=== PATIENT | male | born 1975 | race Caucasian/White ===

== ENCOUNTER 2019-07-12 10:11 | Emergency (ER) | payer BC, SELFPAY ==
--- NOTE | 2019-07-12 10:52 | ED.FEVER ---
HPI - Fever General Chief Complaint: Nausea/Vomiting/Diarrhea Stated Complaint: diarrhea, dont feel good Source: patient Mode of arrival: ambulatory Limitations: no limitations History of Present Illness HPI Narrative: Is a 44-year-old gentleman that presents with a fever while at his primary care physician's office Um temperature that was elicited of 100.2 some presents to the emergency department with being afebrile with no other complaints no diarrhea no nausea vomiting no shortness of breath no cough no chest pain. MD elicited complaint: fever Onset (ago): day(s) Measured temperature: 100.2 C (at his PCP office, currently afebrile) Exacerbating factors: nothing Relieving factors: nothing Associated symptoms: denies other symptoms Treatments prior to arrival fever: none Review of Systems Review of Systems: All systems reviewed & are unremarkable except as noted in HPI and below PMFSH Past Medical History Medical History Patient denies medical problems Exam Const: General: no acute distress and alert Orientation/consciousness: patient oriented x3 Limitations: altered mental status HENMT: Head: normal to inspection Eyes: Conjunctivae: conjunctivae normal Pupils: Equal, round and reactive pupils present Neck: Neck: normal visual inspection Chest: Chest palpation & inspection: normal inspection of the chest Cardio: Rate: regular rate Rhythm: regular rhythm Peripheral pulses: Peripheral pulses 2+ throughout GI: GI Palp: Yes Soft to palpation : Male General Exam: Yes normal external exam Testes: Testes normal Urinary Catheter: Urinary Catheter: patent and draining Skin: General skin exam: normal color Rashes: no rashes Neuro: General: patient oriented x3, moves all extremities, no meningeal signs and no focal motor deficits Extrem: General: normal to inspection Psych: Mental Status: mental status grossly normal Affect: normal affect Critical Care Time Critical Care Time Critical Care Time: No Discharge Plan Discharge Clinical Impression: Gastroenteritis Patient Disposition: Home, Self-Care Condition: Stable Instructions: Antibiotic Form, Gastroenteritis (ED) Additional Instructions: Follow-up with primary care physician if symptoms persist or worsen. Follow-up/Referrals: Aida Garcia MD [Primary Care Provider] - Stand Alone Forms: Work/School Release IP Time of Disposition: 10:57
[2019-07-12 11:00] VITALS: BP 155/103; PULSE 96; RESP 16; TEMP 36.8; O2SAT 96
--- NOTE | 2019-07-12 11:08 | PC.NURSE ---
1045 REPORT TO JAMIE GOMEZ
[2019-07-12 11:13] VITALS: BP 154/103; RESP 16
== END 2019-07-12 11:14 | disposition home or self-care (01) ==
PROVIDERS: Emergency Provider Emergency Medicine; PCP Internal Medicine
DX: K52.9 Noninfective gastroenteritis and colitis, unspecified (principal)
CPT/HCPCS: 99281; 99282

== ENCOUNTER 2020-06-20 14:03 | Outpatient (CLI) | payer BC, SELFPAY ==
--- NOTE | 2020-06-20 14:05 | ECHO_ITS ---
Patient Info Name: Orlando Lawrence Age: 45 years : 1975 Gender: Male Ht: 78 in Wt: 236 lbs BSA: 2.44 m2 HR: 77 bpm BP: 149 / 92 mmHg Heart Rhythm: Sinus Rhythm Technical Quality: Excellent Exam Date: 06/20/2020 1:09 PM Exam Location: [facility] Patient Status: Outpatient Admit Date: 06/20/2020 Staff Ordering Physician: Thad Hines DO Urban Sociologist: Radha Zuniga RDCS Attending Provider: Thad Hines DO Referring Physician: Donny DAMON; Exam Type: CA echo doppler color flow Study Info Indications I10 - Essential (primary) hypertension Complete two-dimensional, color flow and Doppler transthoracic echocardiogram is performed. Strain analysis performed. History/Risk Factors Hypertension: No Dyslipidemia: No Obesity: No Date of Last Tobacco Use: 06/20/2020 Tobacco Use: Current - Every Day If Any Current, Tobacco Type: Smokeless Family History: Coronary Artery Disease, Diabetes Mellitus Frailty Scale (CSHA): 2: Well Summary 1. Complete two-dimensional, color flow and Doppler transthoracic echocardiogram is performed. 2. Left ventricular chamber dimension is normal. 3. Left ventricular systolic function is normal, estimated at 60-65%. 4. There is moderately increased left ventricular wall thickness. 5. The left ventricular diastolic function is grade I diastolic dysfunction. 6. E/e' 10 is mildly elevated. 7. Global longitudinal strain is normal at -24.6%. 8. Left atrial chamber dimension is mildly enlarged. 9. There is trace aortic valve regurgitation. 10. There is mild mitral valve regurgitation. 11. There is trace pulmonic regurgitation. Recommendations * Smoking cessation counseling is recommended for this patient. Left Ventricle E/e' 10 is mildly elevated. Global longitudinal strain is normal at -24.6%. Left ventricular chamber dimension is normal. Left ventricular systolic function is normal, estimated at 60-65%. There is moderately increased left ventricular wall thickness. The left ventricular diastolic function is grade I diastolic dysfunction. Right Ventricle Right ventricular chamber dimension is normal. Right ventricular systolic function is normal. Left Atria Left atrial chamber dimension is mildly enlarged. Right Atria Right atrial chamber dimension is normal. Aortic Valve The aortic valve is trileaflet. There is no aortic valve stenosis. There is trace aortic valve regurgitation. Pulmonic Valve There is trace pulmonic regurgitation. Mitral Valve There is no mitral valve stenosis. There is mild mitral valve regurgitation. Tricuspid Valve There is no tricuspid valve regurgitation. Pericardium/Pleural There is no pericardial effusion. Inferior Vena Cava Normal inferior vena cava with >50% collapse upon inspiration consistent with normal right atrial pressure, 5 mmHg. Aorta The aortic root size at the sinus of Valsalva is normal. Left Ventricular Outflow Tract Name Value Normal LVOT 2D LVOT Diameter 1.9 cm LVOT Doppler LVOT Peak Velocity 117 cm/s
[2020-06-20 14:59] LABS: Hematocrit 40.3 % (40.0-54.0); Hemoglobin 13.7 g/dL (14.0-18.0); Mean Corpuscular Hemoglobin 32.7 pg (27.0-31.0); Mean Corpuscular Volume 96.2 fL (78.0-102.0); Mean Platelet Volume 8.4 fl (8.7-11.0); Platelet Count Result 268 K/mm3 (150-420); Red Blood Count 4.19 M/mm3 (4.70-6.10); Red Cell Distribution Width 12.6 % (11.6-14.4); White Blood Count 8.3 K/mm3 (4.8-10.8)
[2020-06-20 15:46] LABS: BNP 13 pg/mL (0-100)
[2020-06-20 15:51] LABS: Alanine Aminotransferase 40 U/L (16-63); Alkaline Phosphatase 98 U/L (46-116); Anion Gap 10 mmol/L (8-16); Aspartate Amino Transferase 28 U/L (15-37); Bilirubin,Total 0.5 mg/dL (0.00-1.00); Blood Urea Nitrogen 13 mg/dL (7-18); Calcium 8.5 mg/dL (8.5-10.1); Carbon Dioxide 28 mmol/L (21-32); Chloride 98 mmol/L (98-108); Estimated Glomerular Filt Rate > 60; Glucose 86 mg/dL (70-99); Osmolality Calculated 281 mOsm/kg (285-295); Potassium 4.1 mmol/L (3.5-5.1); Sodium 136 mmol/L (136-145); Total Protein 7.6 g/dL (6.4-8.2)
== END 2020-06-20 14:04 | disposition home or self-care (01) ==
LOC: CHSIMG 14:05
PROVIDERS: PCP Family Medicine; Visit Provider Family Medicine
DX: I11.0 Hypertensive heart disease with heart failure (principal); I50.9 Heart failure, unspecified
CPT/HCPCS: 36415; 80053; 83880; 85027; 93306

== ENCOUNTER 2021-10-01 13:25 | Outpatient (CLI) | payer OTHER, SELFPAY ==
--- NOTE | ~2021-10-01 | XR_ITS ---
XR knee RT 3V 10/01/2021 13:55 Indication: Right knee pain Procedure: 3 views right knee Comparison: 08/13/2010 Findings: There is mild-moderate tricompartment osteoarthritis. No fracture or traumatic malalignment . No significant joint effusion. No foreign bodies. There is a small loose body lateral to the joint space, likely degenerative. Impression: 1: Mild-moderate osteoarthritis of the right knee. Reviewed, dictated and finalized at location A. Impression: 1: Mild-moderate osteoarthritis of the right knee.
--- NOTE | ~2021-10-01 | XR_ITS ---
XR knee LT 3V DATE: 10/01/2021 13:54 INDICATION: Right knee pain TECHNIQUE: [place], AP and lateral views COMPARISON: None FINDINGS: No fracture or dislocation or joint effusion. Joint spaces are preserved. No radiopaque int ra-articular loose body or chondrocalcinosis. No periosteal reaction or bone destruction. IMPRESSION: Negative Reviewed, dictated and finalized at location A. IMPRESSION: Negative
== END 2021-10-01 13:26 | disposition home or self-care (01) ==
LOC: CHSIMG 13:29
PROVIDERS: PCP Family Medicine; Visit Provider Family Medicine
DX: M25.561 Pain in right knee (principal); M25.562 Pain in left knee
CPT/HCPCS: 73562

== ENCOUNTER 2021-10-16 08:08 | Outpatient (CLI) | payer OTHER, SELFPAY ==
--- NOTE | ~2021-10-16 | MR_ITS ---
EXAMINATION: MR brain/brain stem wo con DATE: 10/16/2021 09:37 INDICATION: Frequent falls. Disequilibrium. TECHNIQUE: Magnetic resonance imaging (MRI) of the brain and brainstem was performed without intraven ous contrast. Sequences included sagittal and axial T1-weighted SE, axial diffusion-weighted FS SE, a xial T2*-weighted GRE, axial T2-weighted FLAIR Propeller, and axial T2-weighted Propeller. Apparent d iffusion coefficient (ADC) maps were created. COMPARISON: CT dated 07/30/2009. FINDINGS: There are right parietal craniotomy changes. There are scattered mild periventricular and s ubcortical white matter changes, most likely related to small vessel ischemic disease (microangiopath y). There is mild right maxillary sinus disease. Orbits are symmetric without disconjugate gaze. No a cute intracranial infarction or hemorrhage. There is artifact from right parietal craniotomy defect. Structures of the posterior fossa including 7/8th cranial nerve complexes are normal. IMPRESSION: 1. No acute intracranial abnormality. 2: Chronic age-related findings. 3: Mild right maxillary sinus disease. 4: Prior right parietal craniotomy defect. Reviewed, dictated and finalized at location A.
== END 2021-10-16 08:09 | disposition home or self-care (01) ==
LOC: CHSIMG 08:11
PROVIDERS: PCP Family Medicine; Visit Provider Family Medicine
DX: R42 Dizziness and giddiness (principal)
CPT/HCPCS: 70551

== ENCOUNTER 2021-10-20 10:25 | Outpatient (CLI) | payer OTHER, SELFPAY ==
--- NOTE | ~2021-10-20 | MR_ITS ---
EXAMINATION: MR cervical spine wo con DATE: 10/20/2021 11:48 INDICATION: Chronic neck pain. TECHNIQUE: Magnetic resonance imaging (MRI) of the cervical spine was performed without intravenous c ontrast. Sequences included sagittal T2-weighted FSE, sagittal T2-weighted FS FSE, sagittal T1-weight ed FSE, axial MERGE, and axial T2-weighted FSE. COMPARISON: Cervical spine MRI 08/04/2009 FINDINGS: There is 12 degrees dextroscoliosis of the cervicothoracic spine. There is kyphosis of uppe r cervical spine. There are changes of anterior fusion procedure from C4 to C7 with anterior plate an d screws. There is healed interbody bone graft at C4-C5 and C5-C6. There is not definite interbody br idging bone at C6-C7. There is moderately decreased disc height at C2-C3 and C3-C4 and mildly decreas ed disc height at C7-T1. There is increased T2-weighted signal intensity in the spinal cord at C4-C5 centered at the melendrez matter with volume loss, consistent with myelomalacia. The following disc levels are specifically discussed: C2-C3: There is a central protrusion. There is moderate bilateral uncovertebral joint osteoarthritis. There is mild bilateral facet joint osteoarthritis. There is mild bilateral neural foraminal stenosi s. There is mild central canal stenosis. C3-C4: The disc is bulging. There is severe bilateral uncovertebral joint osteoarthritis. There is mi ld bilateral facet joint osteoarthritis. There is mild right and moderate left neural foraminal steno sis. There is mild central canal stenosis. C4-C5: There is no uncovertebral joint hypertrophy. There is no facet joint osteoarthritis. There is no neural foraminal stenosis. There is no central canal stenosis. C5-C6: There is mild bilateral uncovertebral joint hypertrophy. There is no facet joint osteoarthriti s. There is no neural foraminal stenosis. There is no central canal stenosis. C6-C7: There is mild bilateral uncovertebral joint hypertrophy. There is mild left facet joint osteoa rthritis. There is mild bilateral neural foraminal stenosis. There is no central canal stenosis. C7-T1: There is a central protrusion. There is no uncovertebral joint osteoarthritis. There is severe bilateral facet joint osteoarthritis. There is mild bilateral neural foraminal stenosis. There is no central canal stenosis. IMPRESSION: 1. Anterior fusion procedure from C4 to C7. 2. Moderate cervical spondylosis. 3. Chronic myelomalacia at C4-C5. Reviewed, dictated and finalized at location A.
== END 2021-10-20 10:26 | disposition home or self-care (01) ==
LOC: CHSIMG 10:26
PROVIDERS: PCP Family Medicine; Visit Provider Family Medicine
DX: M54.2 Cervicalgia (principal); G89.29 Other chronic pain
CPT/HCPCS: 72141

== ENCOUNTER 2021-10-23 08:26 | Outpatient (CLI) | payer OTHER, SELFPAY ==
--- NOTE | ~2021-10-23 | MR_ITS ---
EXAMINATION: MR lumbar spine wo con DATE: 10/23/2021 09:42 INDICATION: Chronic back pain. TECHNIQUE: Magnetic resonance imaging (MRI) of the lumbar spine was performed without intravenous con trast. Sequences included sagittal T2-weighted FSE, sagittal T2-weighted FS FSE, sagittal T1-weighted FSE, and axial T2-weighted FSE. COMPARISON: Lumbar spine radiographs 02/22/2014 FINDINGS: There is 4 degrees levocurvature of lumbar spine. There are Schmorl's nodes at all levels. There is mildly decreased disc height from T12-L1 through L3-L4 and severely decreased disc height at L5-S1 with endplate remodeling. The distal spinal cord signal intensity is normal. The conus medulla ris is at T12-L1. There is a 12 mm cyst in right kidney. The following disc levels are specifically d iscussed: T12-L1: The disc is bulging. There is no facet joint osteoarthritis. There is no neural foraminal boni nosis. There is mild central canal stenosis. L1-L2: There is a central extrusion. There is mild bilateral facet joint osteoarthritis. There is mil d bilateral neural foraminal stenosis. There is mild central canal stenosis. L2-L3: The disc is bulging. There is no facet joint osteoarthritis. There is mild bilateral neural fo raminal stenosis. There is mild central canal stenosis. L3-L4: The disc is bulging. There is mild bilateral facet joint osteoarthritis. There is mild bilater al neural foraminal stenosis. There is mild central canal stenosis. L4-L5: The disc is bulging. There is mild right and moderate left facet joint osteoarthritis. There i s mild bilateral neural foraminal stenosis. There is no central canal stenosis. L5-S1: The disc is bulging and has an annular fissure. There is moderate right and mild left facet justice int osteoarthritis. There is moderate bilateral neural foraminal stenosis. There is mild central harriet l stenosis. IMPRESSION: 1. Severe lower lumbar spondylosis. Reviewed, dictated and finalized at location A.
== END 2021-10-23 08:27 | disposition home or self-care (01) ==
LOC: CHSIMG 08:27
PROVIDERS: PCP Family Medicine; Visit Provider Family Medicine
DX: M54.9 Dorsalgia, unspecified (principal); G89.29 Other chronic pain
CPT/HCPCS: 72148

== ENCOUNTER 2022-01-01 07:58 | Outpatient (RCR) | payer OTHER, SELFPAY ==
--- NOTE | 2022-01-01 08:02 | PTOPEVAL1 ---
Assessment and note entered by Sophia Burns DPT Evaluation Information Assessment Status Evaluation Diagnosis Back pain Onset 12/25/2021 Subjective Information Pt has been dealing with chronic back pain for years now that has been gradually worsening. Pain has insidious onset but feels it might be from his repetitive job. He reports pain is worst after a hard day of work but pain is constant. He reports that he has noticed he moves slower due to pain. Pt reports that sleep and most activities ( standing, walking, steps) are very painful and he notices that he bends over more for comfort. He also notes that his balance feels off more recently. Pt reports that pain is in his lower back. He has been seeing a neurosurgeon but the current plan is to stay away from surgery for now. Pt reports numbness and tingling in his bilateral feet but not his legs. He has had a surgery in the past on his neck. Pt reports he wants to be able to have less pain for hunting and camping as well as work. Reported Pain Level Pain Score 7: Self Report Assessment PT Clinical Summary Pt presents to physical therapy with low back pain and demonstrates decreased mobility, decreased strength, altered posture and gait, and decreased core stability. These deficits make it more challening for him to walk, stand, and lift weights as needed for work and hunting/camping. He was provided with an HEP focused on improving mobility and strength in positions of comfort. He will benefit from skilled PT to improve the aforementioned impairments, facilitate symptom relief, and return to functional and recreational activities. Plan of Care Interventions Electrical Stimulation,Hot Pack/Cold Pack,Manual Therapy,Neuro Re-education,Patient/Caregiver Educati,Therapeutic Activities,Therapeutic Exercise PT Services Indicated Yes Treatment Frequency and 2x week for 10 visits Duration These treatments will address the objective and functional deficits as defined above. The patient will be advanced safely and appropriately in order for the patient to progress towards his/her prior level of function. Additional exercises will be introduced and as well as a comprehensive home exercise program upon discharge, if needed, ?to ensure carryover of functional gains achieved in the clinic. This treatment plan has been reviewed and agreement upon by the patient.
--- NOTE | 2022-02-11 07:43 | PTOPEVAL1 ---
Assessment and note entered by Vasquez Rausch Evaluation Information Assessment Status Progress Diagnosis back pain Onset 12/25/21 Subjective Information Pt. reports that he has been attending doctors appointments recently and been unable to attend therapy. He states that his back pain has not changed, but he has not been doing his HEP. He states that he still has constant pain across the low back. He reports that he does attempt to complete yard work but still causes pain. He recently talked with his doctor who thought surgery may be in the future to address his low back pain. Reported Pain Level Pain Score 6: Self Report Assessment PT Clinical Summary Pt. has been unable to attend therapy as of recently due to other appointments. He has demonstrated little progress in regards to pain reports and objective presentation. He continues to present with generalized l.e. weakness, impaired postural awareness, impaired flexibility and overall functional decline. Continued treatment is indicated in order to continue to improve these areas and to establish independence with a HEP. Plan of Care Interventions Electrical Stimulation,Hot Pack/Cold Pack,Manual Therapy,Neuro Re-education,Therapeutic Activities, Therapeutic Exercise,Self-Care/Home Management PT Services Indicated Yes Treatment Frequency and 2x/week x 4 visits Duration These treatments will address the objective and functional deficits as defined above. The patient will be advanced safely and appropriately in order for the patient to progress towards his/her prior level of function. Additional exercises will be introduced and as well as a comprehensive home exercise program upon discharge, if needed, ?to ensure carryover of functional gains achieved in the clinic. This treatment plan has been reviewed and agreement upon by the patient.
--- NOTE | 2022-02-26 08:08 | PTOPPROG ---
Assessment and note entered by Sophia Burns DPT Evaluation Information Assessment Status Progress Diagnosis back pain Onset 12/25/21 Subjective Information Pt reports that his pain is slowly improving but he notes the most pain when twisting and bending. Pt reports some feelings of weakness in the legs. Pt sees the neurosurgeon again on 03/01. Assessment PT Clinical Summary Pt presents to PT with significant improvements in pain, quality of life, strength, and range of motion since his last evaluation. He is still limited in range of motion and strength and notes pain with extension or rotation-based interventions. He will benefit from additional skilled PT to further facilitate symptom relief, improve the aforementioned impairments, and return to functional and recreational activities. Plan of Care PT Services Indicated Yes Treatment Frequency and 1x week for 4 more visits Duration These treatments will address the objective and functional deficits as defined above. The patient will be advanced safely and appropriately in order for the patient to progress towards his/her prior level of function. Additional exercises will be introduced and as well as a comprehensive home exercise program upon discharge, if needed, ?to ensure carryover of functional gains achieved in the clinic. This treatment plan has been reviewed and agreement upon by the patient.
--- NOTE | 2022-06-12 17:21 | PCPTNOTE ---
patient has not been to therapy since 02/25/22. he will be dc'd from skilled PT services and all progress towards goals will be taken from his most recent evaluation/note. ADAM
== END 2022-02-26 23:59 | disposition home or self-care (01) ==
LOC: CHSPT 07:58
PROVIDERS: PCP Family Medicine
DX: M54.9 Dorsalgia, unspecified (principal)
CPT/HCPCS: 97014; 97110; 97140; 97161; 97530; G0283

== ENCOUNTER 2022-01-11 14:44 | Outpatient (CLI) | payer OTHER, SELFPAY ==
--- NOTE | ~2022-01-11 | XR_ITS ---
EXAMINATION: XR lumbar spine min 4V DATE: 01/11/2022 15:13 INDICATION: Lumbar radicular pain. TECHNIQUE: 5 views of lumbar spine including flexion and extension views were obtained. COMPARISON: Lumbar spine radiograph 02/22/2014, CT 01/11/2022 FINDINGS: There is mild kyphosis of lumbar spine. There are Schmorl's nodes at many levels. There is mildly decreased disc height at T12-L1, L2-L3, and L3-L4 and severely decreased disc height at L5-S1. There is multilevel mild facet joint osteoarthritis. The spine is hypomobile with flexion and extens ion. IMPRESSION: 1. Severe lower lumbar spondylosis. Reviewed, dictated and finalized at location A.
--- NOTE | ~2022-01-11 | CT_ITS ---
EXAMINATION: CT lumbar spine wo con DATE: 01/11/2022 15:14 INDICATION: Chronic low back pain. TECHNIQUE: Computed tomography (CT) of the lumbar spine was performed without intravenous contrast. A utomated exposure control and iterative reconstruction technique were employed. The dose-length produ ct was 1098.32 mGy-cm. COMPARISON: Lumbar spine MRI 10/23/2021 FINDINGS: There is diffuse hepatic steatosis. There is diffuse bladder wall thickening. There is mild kyphosis of lumbar spine. There are Schmorl's nodes at all levels. There is mildly decreased disc he ight from T12-L1 through L3-L4 and severely decreased disc height at L5-S1. The following disc levels are specifically discussed: L1-L2: The disc is bulging. There is mild bilateral facet joint osteoarthritis. There is mild bilater al neural foraminal stenosis. There is mild central canal stenosis. L2-L3: The disc is bulging. There is mild bilateral facet joint osteoarthritis. There is mild bilater al neural foraminal stenosis. There is mild central canal stenosis. L3-L4: The disc is bulging. There is mild bilateral facet joint osteoarthritis. There is mild bilater al neural foraminal stenosis. There is mild central canal stenosis. L4-L5: The disc is bulging. There is mild right and moderate left facet joint osteoarthritis. There i s mild bilateral neural foraminal stenosis. There is mild central canal stenosis. L5-S1: The disc is bulging. There is mild bilateral facet joint osteoarthritis. There is severe right and moderate left neural foraminal stenosis. There is mild central canal stenosis. IMPRESSION: 1. Severe lower lumbar spondylosis. 2. Diffuse bladder wall thickening, which may be seen with chronic outlet obstruction, cystitis, or n eurogenic bladder. Reviewed, dictated and finalized at location A. IMPRESSION: 1. Severe lower lumbar spondylosis. 2. Diffuse bladder wall thickening, which may be seen with chronic outlet obstr uction, cystitis, or neurogenic bladder.
== END 2022-01-11 14:45 | disposition home or self-care (01) ==
LOC: CHSIMG 14:45
PROVIDERS: PCP Family Medicine
DX: M54.16 Radiculopathy, lumbar region (principal); M54.9 Dorsalgia, unspecified
CPT/HCPCS: 72110; 72131

== ENCOUNTER 2022-07-12 09:29 | Outpatient (CLI) | payer OTHER, SELFPAY ==
--- NOTE | ~2022-07-12 | XR_ITS ---
XR chest 2V 07/12/2022 09:51 Indication: Preop for back surgery. Procedure: 2 view chest Comparison: No prior studies for comparison. Findings: Heart size normal. There is focal eventration of the right diaphragm anteriorly with underl dominique compressive atelectasis. No focal pneumonia, edema, pleural effusion or pneumothorax. Impression: 1: Focal eventration of the right diaphragm anteriorly with underlying compressive atelectasis. Reviewed, dictated and finalized at location A. Impression: 1: Focal eventration of the right diaphragm anteriorly with underlying compress jong atelectasis.
--- NOTE | ~2022-07-12 | US_ITS ---
US abdomen limited INDICATION: Elevated liver enzymes PROCEDURE: Realtime right upper abdominal ultrasound. COMPARISON: No prior studies for comparison. FINDINGS: The pancreas is normal without focal mass or pancreatic ductal dilation. Liver echotexture is increased, consistent with fatty infiltration. There is normal directional flow in the portal ve in. The gallbladder is normal without stones, gallbladder wall thickening or pericholecystic fluid. Comm on bile duct measures 3 mm. No sonographic Garber's sign. IMPRESSION: 1: Hepatic steatosis. Reviewed, dictated and finalized at location A. IMPRESSION: 1: Hepatic steatosis.
--- NOTE | 2022-07-12 09:42 | ECG_ITS ---
Measurements Intervals [place] Rate: 67 P: 59 VT: 174 QRS: 25 QRSD: 90 T: -4 QT: 444 QTc: 471 Interpretive Statements SINUS RHYTHM WITHIN NORMAL LIMITS NO PREVIOUS ECG AVAILABLE FOR COMPARISON Electronically Signed On 07-12-2022 15:45:52 CDT by Vasquez Melendrez M.D.
[2022-07-12 09:54] LABS: Appearance Urine Clear (Clear); Bilirubin Urine Negative (Negative); Blood Urine Negative (Negative); Color Urine Light Yellow (Yellow); Glucose Urine UA Negative (Negative); Ketones Urine Negative (Negative); Leukocyte Esterase Ur Negative (Negative); Nitrate Urine Negative (Negative); Protein Urine Negative (Negative); Urobilinogen Urine 0.2 mg/dL (0.2-1.0); pH Urine 7.5 (5.0-8.0)
[2022-07-12 09:56] LABS: Hematocrit 44.8 % (40.0-54.0); Hemoglobin 15.3 g/dL (14.0-18.0); Mean Corpuscular HGB Conc 34.2 g/dL (32.0-36.0); Mean Corpuscular Hemoglobin 32.8 pg (27.0-31.0); Mean Corpuscular Volume 96.1 fL (78.0-102.0); Mean Platelet Volume 8.7 fl (8.7-11.0); Platelet Count Result 273 K/mm3 (150-420); Red Blood Count 4.66 M/mm3 (4.70-6.10); Red Cell Distribution Width 12.2 % (11.6-14.4); White Blood Count 5.8 K/mm3 (4.8-10.8)
[2022-07-12 10:02] LABS: Add Urine Microscopic? NO
[2022-07-12 10:25] LABS: Alanine Aminotransferase 157 U/L (16-63); Albumin Level 4.5 g/dL (3.4-5.0); Alkaline Phosphatase 82 U/L (46-116); Anion Gap 7 mmol/L (8-16); Aspartate Amino Transferase 100 U/L (15-37); Bilirubin,Total 0.9 mg/dL (0.00-1.00); Blood Urea Nitrogen 6 mg/dL (7-18); Calcium 9.3 mg/dL (8.5-10.1); Carbon Dioxide 36 mmol/L (21-32); Chloride 91 mmol/L (98-108); Estimated Glomerular Filt Rate > 60; Glucose 119 mg/dL (70-99); Osmolality Calculated 276 mOsm/kg (285-295); Potassium 3.2 mmol/L (3.5-5.1); Sodium 134 mmol/L (136-145); Total Protein 7.7 g/dL (6.4-8.2)
== END 2022-07-12 09:30 | disposition home or self-care (01) ==
PROVIDERS: PCP Family Medicine; Visit Provider Family Medicine
DX: Z01.818 Encounter for other preprocedural examination (principal); R74.01 Elevation of levels of liver transaminase levels; K76.0 Fatty (change of) liver, not elsewhere classified; R91.8 Other nonspecific abnormal finding of lung field
CPT/HCPCS: 36415; 71046; 76705; 80053; 81003; 85027; 87081; 93005

== ENCOUNTER 2022-10-03 07:06 | Outpatient (CLI) | payer OTHER, SELFPAY ==
--- NOTE | ~2022-10-03 | MR_ITS ---
MRI of the lumbar spine Clinical History: Stenosis Technique: Axial T2-weighted images, and sagittal T1-weighted, T2-weighted, and T2 fat-sat images wer e acquired. COMPARISON: 10/23/2021 Findings: There is no acute fracture or subluxation of the lumbar spine. Osseous alignment is unchang ed from prior exam. There is reactive marrow edema about the L5-S1 disc space due to underlying degen erative disc disease. At L1-L2, there is moderate degenerative disc narrowing. There is mild disc bulge with annular fissur e. There is mild facet arthropathy. No central canal stenosis or neural foraminal narrowing. At L2-L3, there is moderate degenerative disc narrowing with mild disc bulge. There is no central can al stenosis or neural foraminal narrowing. At L3-L4, there is moderate degenerative disc disease. There is minimal disc bulge. There is no centr al canal stenosis or neural foraminal narrowing. At L4-L5, there is mild degenerative disc narrowing with minimal disc bulge. No central canal stenosi s or neural foraminal narrowing. At L5-S1, there is advanced degenerative disc narrowing with diffuse disc bulge/protrusion. There is severe bilateral neural foraminal narrowing. No dilip central canal stenosis. Paravertebral soft tissues are unremarkable. Impression: Advanced degenerative spondylosis at L5-S1, with severe bilateral neural foraminal narrowing. Mild degenerative spondylosis in the remainder of the lumbar spine. Reviewed, dictated and finalized at [facility]. Impression: Advanced degenerative spondylosis at L5-S1, with severe bilateral neural forami nal narrowing. Mild degenerative spondylosis in the remainder of the lumbar spine.
--- NOTE | ~2022-10-03 | CT_ITS ---
EXAMINATION: CT lumbar spine wo con DATE: 10/03/2022 08:05 INDICATION: Spinal stenosis. Low back pain. TECHNIQUE: Computed tomography (CT) of the lumbar spine was performed without intravenous contrast. A utomated exposure control and iterative reconstruction technique were employed. The dose-length produ ct was 1144.98 mGy-cm. COMPARISON: CT lumbar spine 01/11/2022, MRI 10/03/2022 FINDINGS: There is diffuse hepatic steatosis. There is diffuse bladder wall thickening, likely second hyun to chronic outlet obstruction from the mildly enlarged prostate. Bone alignment is normal. There are Schmorl's nodes at most levels. There is mildly decreased disc height at T12-L1, L1-L2, L2-L3, L2 -L3, and L3-L4 and severely decreased disc height at L5-S1. There are healing fractures right 10th-12 th ribs. The following disc levels are specifically discussed: L1-L2: The disc is present. There is mild bilateral facet joint osteoarthritis. There is mild left ne ural foraminal stenosis. There is mild central canal stenosis. L2-L3: The disc is bulging. There is mild bilateral facet joint osteoarthritis. There is mild bilater al neural foraminal stenosis. There is mild central canal stenosis. L3-L4: The disc is bulging. There is mild bilateral facet joint osteoarthritis. There is mild bilater al neural foraminal stenosis. There is no central canal stenosis. L4-L5: The disc is bulging. There is mild right and moderate left facet joint osteoarthritis. There i s mild bilateral neural foraminal stenosis. There is mild central canal stenosis. L5-S1: The disc is bulging. There is mild bilateral facet joint osteoarthritis. There is moderate steffen ateral neural foraminal stenosis. There is mild central canal stenosis. IMPRESSION: 1. Severe lower lumbar spondylosis, stable from 01/11/2022. Reviewed, dictated and finalized at location E.
== END 2022-10-03 07:07 | disposition home or self-care (01) ==
LOC: CHSIMG 07:07
PROVIDERS: PCP Family Medicine
DX: M54.16 Radiculopathy, lumbar region (principal); M43.06 Spondylolysis, lumbar region
CPT/HCPCS: 72131; 72148

== ENCOUNTER 2022-12-02 10:10 | Outpatient (CLI) | payer OTHER, SELFPAY ==
--- NOTE | ~2022-12-02 | XR_ITS ---
EXAMINATION: XR chest 2V DATE: 12/02/2022 10:37 INDICATION: Spinal stenosis. Preop. TECHNIQUE: Frontal and lateral views of the chest were obtained. 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 No pneumonia, pleura l effusion, or pneumothorax. The heart size is normal. There are changes of anterior fusion procedure in cervical spine. IMPRESSION: 1. Right-sided Morgagni hernia containing nonobstructed bowel. Reviewed, dictated and finalized at location A.
[2022-12-02 10:23] LABS: Basophils Absolute Auto 0.07 K/mm3 (0.00-0.10); Basophils Percent Auto 0.9 % (0.0-1.0); Eosinophils Absolute Auto 0.15 K/mm3 (0.02-0.50); Eosinophils Percent Auto 1.9 % (1.0-6.0); Hematocrit 46.2 % (40.0-54.0); Hemoglobin 16.3 g/dL (14.0-18.0); Immature Granulocyte Absolute 0.03 K/mm3 (0.00-0.00); Immature Granulocyte Percent A 0.4 % (0.0-0.0); Lymphocytes Absolute Auto 1.37 K/mm3 (1.10-4.50); Mean Corpuscular HGB Conc 35.3 g/dL (32.0-36.0); Mean Corpuscular Hemoglobin 34.3 pg (27.0-31.0); Mean Corpuscular Volume 97.3 fL (78.0-102.0); Mean Platelet Volume 8.1 fl (8.7-11.0); Monocytes Absolute Auto 0.93 K/mm3 (0.10-0.90); Monocytes Percent Auto 11.5 % (2.0-11.0); Neutrophils Absolute Auto 5.5 K/mm3 (1.7-7.2); Neutrophils Percent Auto 68.3 % (50.0-70.0); Platelet Count Result 284 K/mm3 (150-420); Red Blood Count 4.75 M/mm3 (4.70-6.10); Red Cell Distribution Width 12.1 % (11.6-14.4); White Blood Count 8.1 K/mm3 (4.8-10.8)
[2022-12-02 10:38] LABS: Appearance Urine Clear (Clear); Bilirubin Urine Negative (Negative); Blood Urine Negative (Negative); Color Urine Light Yellow (Yellow); Glucose Urine UA Negative (Negative); Ketones Urine Negative (Negative); Leukocyte Esterase Ur Negative (Negative); Nitrate Urine Negative (Negative); Protein Urine Negative (Negative); Specific Grav Ur <= 1.005 (1.010-1.020); Urobilinogen Urine 0.2 mg/dL (0.2-1.0); pH Urine 7.5 (5.0-8.0)
[2022-12-02 10:44] LABS: Add Urine Microscopic? NO
[2022-12-02 10:59] LABS: Alanine Aminotransferase 91 U/L (16-63); Albumin Level 4.4 g/dL (3.4-5.0); Alkaline Phosphatase 101 U/L (46-116); Anion Gap 9 mmol/L (8-16); Aspartate Amino Transferase 62 U/L (15-37); Bilirubin,Total 0.9 mg/dL (0.00-1.00); Blood Urea Nitrogen 8 mg/dL (7-18); Calcium 9.3 mg/dL (8.5-10.1); Carbon Dioxide 32 mmol/L (21-32); Chloride 97 mmol/L (98-108); Estimated Glomerular Filt Rate > 60; Glucose 100 mg/dL (70-99); Osmolality Calculated 284 mOsm/kg (285-295); Potassium 3.9 mmol/L (3.5-5.1); Sodium 138 mmol/L (136-145); Total Protein 7.7 g/dL (6.4-8.2)
== END 2022-12-02 10:11 | disposition home or self-care (01) ==
LOC: CHSLAB 10:11
PROVIDERS: PCP Family Medicine; Visit Provider Family Medicine
DX: Z01.818 Encounter for other preprocedural examination (principal); K45.8 Other specified abdominal hernia without obstruction or gangrene
CPT/HCPCS: 36415; 71046; 80053; 81003; 85025; 87081

== ENCOUNTER 2023-02-18 07:23 | Outpatient (CLI) | payer OTHER, SELFPAY ==
--- NOTE | ~2023-02-18 | CT_ITS ---
Noncontrast CT scan of the lumbar spine CLINICAL HISTORY: Radicular pain TECHNIQUE: Axial noncontrast imaging of the lumbar spine was performed. Sagittal and coronal reformat narendra images were constructed. Dose reduction technique was used on this scan by utilizing automated ex posure control and iterative reconstruction technique. The dose-length product (DLP) was 1269.72 mGy- cm. COMPARISON: 10/03/2022 FINDINGS: No acute fracture or subluxation identified. Patient has undergone interval posterior and i nterbody fusion from L5 to S1. Osseous alignment otherwise is unchanged from prior exam. At L1-L2, there is mild disc bulge and minimal facet joint hypertrophy. No central canal stenosis or definite neural foraminal narrowing. At L2-L3, there is minimal disc bulge. No definite central canal stenosis or neural foraminal narrowi ng. At L3-L4, there is mild diffuse disc bulge. No definite central canal stenosis or neural foraminal na rrowing. At L4-L5, there is probable minimal disc bulge. No definite central canal stenosis. There is moderate bilateral neural foraminal narrowing. At L5-S1, there is streak artifact and posterior decompression. Probable severe bilateral neural fora hero compromise. Paravertebral soft tissues are unremarkable. There is diffuse urinary bladder wall thickening. Impression: Status post interval posterior interbody fusion from L5 to S1, with posterior decompression at this l evel. Probable severe bilateral neural foraminal narrowing at L5-S1, and moderate bilateral neural foramina l narrowing at L4-L5. Diffuse urinary bladder wall thickening. Correlate for cystitis. Reviewed, dictated and finalized at [facility]. [facility]EW[facility] Impression: Status post interval posterior interbody fusion from L5 to S1, with posterior d ecompression at this level. Probable severe bilateral neural foraminal narrowing at L5-S1, and moderate steffen ateral neural foraminal narrowing at L4-L5. Diffuse urinary bladder wall thickening. Correlate for cystitis.
== END 2023-02-18 07:24 | disposition home or self-care (01) ==
LOC: CHSIMG 07:24
PROVIDERS: PCP Family Medicine
DX: M54.16 Radiculopathy, lumbar region (principal); Z98.1 Arthrodesis status; R93.41 Abnormal radiologic findings on diagnostic imaging of renal pelvis, ureter, or bladder
CPT/HCPCS: 72131

== ENCOUNTER 2023-03-12 06:44 | Day surgery (SDC) | payer OTHER, SELFPAY ==
[2023-03-06 09:53] VITALS: BMI 29.1
[2023-03-06 10:56] VITALS: BMI 28.6
--- NOTE | 2023-03-12 07:20 | P.PNAN_ITS ---
Anes - Initial Pre Proc Eval Procedure: Operation Date: 03/12/23 09:00 Proposed Procedures p Screening Colonoscopy - Fabrizio Barajas DO Date/Time: 03/12/23 07:20 Surgeon: Fabrizio Barajas DO Pre Op Diagnosis: Neoplasm Screening Patient Data Age: 48 Gender: M Height: 1.91 m Weight: 104 kg Allergies Allergy/AdvReac Type Severity Reaction Status Date / Time codeine AdvReac Unknown Redness of Verified 03/12/23 07:41 Skin amlodipine AdvReac Swelling Verified 03/12/23 07:41 Home Medications Medication Instructions Recorded Confirmed Type lisinopril 10 mg tablet 10 mg PO QHS #30 tabs 02/28/23 03/12/23 Rx furosemide 80 mg tablet 80 mg PO DAILY 03/06/23 03/12/23 History Patient hx anesthesia problems: none Family hx anesthesia problems: none Results Review: All pre-operative results and documents have been reviewed as part of the pre- operative evaluation. 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 Hypertension Mild alcohol abuse Tobacco abuse Surgical History Surgical History History of neck surgery Social History Social History (Updated 03/12/23 @ 08:13 by Orlando Taylor DO) Smoking packs per day: 1 Smoking cigarettes per day: 20.0 Years smoked: 11 Smoking pack-years: 11.00 Smoking status: Former smoker Tobacco type: e-cigarettes/vaping Alcohol intake: current Alcohol use details: 12 beers/day Substance use: never Substance use type: does not use Spiritual care concerns: No Anes - Eval Final PreProcedure Day of Procedure 03/12/23 07:20 Patient weight: overweight Heart: regular rate and rhythm Lungs: clear to auscultation Airway: Mallampati scale class II Neurological: alert and oriented Last oral intake: >/= 8 hours ASA classification: III Emergent: no Anesthetic plan: proceed Anesthesia type and monitoring: general GIVS and standard monitoring Results Review: All pre-operative results and documents have been reviewed as part of the pre- operative evaluation. Informed Consent: The patient's anesthetic plan and its attendant risks and benefits were discussed with the patient/family/POA. Questions were solicited and answers provided to the satisfaction of the patient/family/POA.
[2023-03-12 07:42] VITALS: BP 152/97; PULSE 85; RESP 20; TEMP 37.2; O2SAT 98
[2023-03-12] MEDS: LACTATED RINGERS 1,000 ML 150 ML IV CONT (07:53)
--- NOTE | 2023-03-12 08:31 | PM.IMHP ---
H&P: HPI History of Present Illness Date/Time: 03/12/23 08:31 Chief Complaint: Screening for colorectal cancer Narrative: 48 yo man presents for first colonoscopy. Denies fam hx colon cancer but thinks parents have had polyps removed. Denies hematochezia or melena. Review of Systems Review of Systems: All systems reviewed & are unremarkable except as noted in HPI and below Constitutional: Constitutional: Denies chills, Denies fever(s), Denies headache(s) and Denies weight loss Eyes: Eyes: Denies change in vision ENT: Denies dizziness, Denies headache(s), Denies neck mass and Denies throat swelling Cardiovascular: Cardiovascular: Denies chest pain, Denies lightheadedness and Denies dyspnea Respiratory: Respiratory: Denies cough, Denies dyspnea and Denies wheezing Gastrointestinal: Gastrointestinal: Denies abdominal pain, Denies change in bowel habits, Denies nausea and Denies vomiting Genitourinary: Genitourinary: Denies hematuria and Denies dysuria Musculoskeletal: Musculoskeletal: Reports as per HPI Integumentary/Breasts: Skin/Breast: Reports as per HPI Neurologic: Denies dizziness and Denies headache(s) Allergic/Immunologic: Allergic/Immunologic: Denies throat swelling and Denies wheezing PMF Past Medical History Medical History (Updated 03/12/23 @ 08:32 by Fabrizio Barajas DO) 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 Hypertension Mild alcohol abuse Tobacco abuse Surgical History Surgical History History of neck surgery Social History Social History (Updated 03/12/23 @ 08:13 by Orlando Taylor DO) Smoking packs per day: 1 Smoking cigarettes per day: 20.0 Years smoked: 11 Smoking pack-years: 11.00 Smoking status: Former smoker Tobacco type: e-cigarettes/vaping Alcohol intake: current Alcohol use details: 12 beers/day Substance use: never Substance use type: does not use Spiritual care concerns: No Meds Home Medications and Allergies Home Medications Medication Instructions Recorded Confirmed Type lisinopril 10 mg tablet 10 mg PO QHS #30 tabs 02/28/23 03/12/23 Rx furosemide 80 mg tablet 80 mg PO DAILY 03/06/23 03/12/23 History Allergies Allergy/AdvReac Type Severity Reaction Status Date / Time codeine AdvReac Unknown Redness of Verified 03/12/23 07:41 Skin amlodipine AdvReac Swelling Verified 03/12/23 07:41 Vital Signs Vital Signs - 24 hr 03/12/23 07:42 Temperature 37.2 C Pulse Rate 85 Respiratory Rate 20 Blood Pressure 152/97 H Pulse Oximetry 98 Oxygen Delivery Room Air Exam Const: General: no acute distress and alert Orientation/consciousness: patient oriented x3 HENMT: Head: normocephalic and atraumatic Ears: hearing grossly normal bilaterally Face/Nose/Sinus: Normal nares present Mouth: Yes Normal oral and palatal mucosa present Eyes: Periorbital: periorbital findings normal Sclera: sclerae normal EOM: EOMs intact bilaterally Neck: Neck: normal visual inspection, no lymphadenopathy and trachea midline Chest: Chest palpation & inspection: normal inspection of the chest Resp: Effort & Inspection: normal respiratory effort Auscultation: clear to auscultation bilaterally Cardio: Jugular venous distension: no JVD Rate: regular rate Rhythm: regular rhythm Heart sounds: S1 normal heart sound present and S2 normal heart sound present Peripheral pulses: Peripheral pulses 2+ throughout GI: Inspection: normal to inspection GI Palp: Yes Soft to palpation, No Tenderness to palpation present (GI), No Guarding due to palpation present (GI) and No Rebound tenderness present Percussion: Yes normal to percussion Auscultation: normal bowel sounds : General: Yes no CVA tenderness Back/Spine/Pelvis: Back: no CVA tenderness Neuro: General: patient oriented x3, no focal motor deficits and CN's II-XI intact bilaterally Cognition (Neuro): normal cognition Speech: normal speech Motor
[2023-03-12 09:15] VITALS: BP 122/86; PULSE 72; RESP 16; O2SAT 100
[2023-03-12 09:25] VITALS: BP 136/94; PULSE 69; RESP 16; O2SAT 99
[2023-03-12 09:35] VITALS: BP 132/89; PULSE 74; RESP 16; O2SAT 99
--- NOTE | 2023-03-12 09:55 | SUR.PHASEII ---
LATE NOTE, 0915; REPORT RECEIVED FROM MYRTLE BRASS CHASER. SHE STATES PT HAS A LARGE BRUISE ON HIS HIP THAT WAS NOTED PRIOR TO PROCEDURE.
--- NOTE | 2023-03-12 11:34 | WPDANESPN ---
Anes - Prog Note Post-Op Date/Time: 03/12/23 11:34 Cardiovascular status: normal Respiratory status: normal Airway patency: baseline Mental status: baseline Post-Op hydration status: normal Vital Signs: Last Vital Signs Temp 37.2 C 03/12/23 07:42 Pulse 74 03/12/23 09:35 Resp 16 03/12/23 09:35 BP 132/89 03/12/23 09:35 Pulse Ox 99 03/12/23 09:35 O2 Del Method Room Air 03/12/23 09:35 Pain Score (VAS): 0 I/O: Intake & Output 03/11/23 03/12/23 03/12/23 23:59 07:59 15:59 Intake Total 500 Balance 500 Post-procedural complaints: none Patient Feedback: Patient satisfied with anesthetic care. Other Findings: Patient vital signs back to baseline. Patient denies nausea and vomiting. Patient's pain under control. Patient OK for discharge.
== END 2023-03-12 09:55 | disposition home or self-care (01) ==
PROVIDERS: PCP Family Medicine; Visit Provider Surgery
PROC: 0DJD8ZZ Inspection of Lower Intestinal Tract, Via Natural or Artificial Opening Endoscopic (ICD-10-PCS; CPT 45378; principal; 2023-03-12 09:00)
DX: Z12.11 Encounter for screening for malignant neoplasm of colon (principal); D12.5 Benign neoplasm of sigmoid colon
CPT/HCPCS: 45380

== ENCOUNTER 2023-03-12 07:00 | Outpatient (NON) | payer OTHER, SELFPAY | END 2023-03-12 07:01 | disposition home or self-care (01) | PROVIDERS: PCP Family Medicine; Visit Provider Surgery | DX: Z12.11 Encounter for screening for malignant neoplasm of colon (principal) | CPT/HCPCS: 88305 ==

== ENCOUNTER 2023-05-22 07:39 | Outpatient (CLI) | payer OTHER, SELFPAY | END 2023-05-22 07:40 | disposition home or self-care (01) | LOC: CHSIMG 07:41 | PROVIDERS: PCP Family Medicine | DX: G95.9 Disease of spinal cord, unspecified (principal) | CPT/HCPCS: 99199 ==

== ENCOUNTER 2023-05-29 06:52 | Outpatient (CLI) | payer OTHER, SELFPAY | END 2023-05-29 06:53 | disposition home or self-care (01) | PROVIDERS: PCP Family Medicine | DX: G95.89 Other specified diseases of spinal cord (principal) | CPT/HCPCS: 99199 ==

== ENCOUNTER 2023-08-27 09:50 | Outpatient (CLI) | payer OTHER, SELFPAY ==
--- NOTE | ~2023-08-27 | XR_ITS ---
EXAMINATION: XR chest 2V 08/27/2023 10:12 INDICATION: Surgical clearance PROCEDURE: 2 view chest COMPARISON: 12/02/2022 FINDINGS: The lungs are clear. The cardiomediastinal silhouette is within normal limits. There are no pleural effusions. There is no pneumothorax suspected. There is right basilar atelectasis. There is a right-sided orchiectomy hernia containing nonobstructed bowel. IMPRESSION: 1: NO ACUTE CARDIOPULMONARY DISEASE. Reviewed, dictated and finalized at location B.
--- NOTE | 2023-08-27 10:02 | ECG_ITS ---
[address] Test Date: 2023-08-27 Pat Name: Orlando Lawrence Department: Room: Gender: Manager Of Purchasing: : 1975 Requested By: Thad Lux Order Number: [id number] Reading MD: Stacey Knox M.D. Measurements Intervals [place] Rate: 79 P: 66 LA: 161 QRS: 50 QRSD: 92 T: 41 QT: 432 QTc: 497 Interpretive Statements SINUS RHYTHM PROLONGED QT INTERVAL No previous ECG available for comparison Electronically Signed On 08-27-2023 13:47:24 CDT by Stacey Knox M.D.
[2023-08-27 10:33] LABS: Hematocrit 47.9 % (40.0-54.0); Hemoglobin 16.7 g/dL (14.0-18.0); Mean Corpuscular HGB Conc 34.9 g/dL (32-36); Mean Corpuscular Hemoglobin 33.5 pg (27.0-31.0); Mean Corpuscular Volume 96.2 fL (78.0-102.0); Platelet Count Result 254 K/mm3 (150-420); Red Blood Count 4.98 M/mm3 (4.70-6.10); Red Cell Distribution Width 12.1 % (11.6-14.4); White Blood Count 5.2 K/mm3 (4.8-10.8)
[2023-08-27 10:54] LABS: Alanine Aminotransferase 132 U/L (16-63); Albumin Level 4.3 g/dL (3.4-5.0); Alkaline Phosphatase 128 U/L (46-116); Anion Gap 7 mmol/L (4-12); Aspartate Amino Transferase 131 U/L (15-37); Bilirubin,Total 1.6 mg/dL (0.00-1.00); Blood Urea Nitrogen 6 mg/dL (7-18); Calcium 8.8 mg/dL (8.5-10.1); Carbon Dioxide 29 mmol/L (21-32); Chloride 97 mmol/L (98-108); Estimated Glomerular Filt Rate > 60; Glucose 106 mg/dL (70-99); Osmolality Calculated 273 mOsm/kg (285-295); Potassium 3.9 mmol/L (3.5-5.1); Sodium 133 mmol/L (136-145)
[2023-08-27 11:20] LABS: MRSA (PCR) NOT DETECTED (NOT DETECTE)
[2023-08-27 11:30] LABS: Band Neutrophils Percent 0 % (0-6); Lymphocytes Absolute Manual 0.83 K/mm3 (1.1-4.5); Lymphocytes Percent Manual 16 % (18-44); Neutrophils Absolute Manual 3.22 K/mm3 (1.3-6.7); Neutrophils Percent Manual 62 % (46-73); Total Cells Counted 100
[2023-08-27 11:31] LABS: Basophils Percent Manual 0 % (0-1); Eosinophils Absolute Manual 0.15 K/mm3 (0.02-0.50); Eosinophils Percent Manual 3 % (1-6); Monocytes Absolute Manual 0.98 K/mm3 (0.1-0.90); Monocytes Percent Manual 19 % (3-9); Platelet Estimate Adequate (Adequate)
== END 2023-08-27 09:51 | disposition home or self-care (01) ==
PROVIDERS: PCP Family Medicine; Visit Provider Family Medicine
DX: G89.29 Other chronic pain (principal); M54.2 Cervicalgia
CPT/HCPCS: 36415; 71046; 80053; 85025; 87641; 93005